=== PATIENT | female | born 1940 | race Caucasian/White ===

== ENCOUNTER 2017-01-12 09:16 | Day surgery (SDC) | payer MEDICARE, BC ==
[~2017-01-12 09:16] MED LIST: Buffered Lidocaine 1% SYRIN* 3 ML/SYR SYRINGE INTRADERM ONE; Famotidine IV* 10 MG/ML 2 ML (20 mg) IV ONE
[2017-01-12] MEDS ORDERED: Famotidine IV* 10 MG/ML 2 ML (20 mg) ONE (09:41)
[2017-01-12] MEDS ORDERED: Clindamycin 900 MG IVPREMIX(* 900 MG/50 ML SDV IV ONE (09:41)
[2017-01-12] MEDS ORDERED: Propofol* 10 MG/ML 20 ML BTL IV PUSH ONE (10:44)
[2017-01-12] MEDS ORDERED: fentaNYL* 50 MCG/ML 2 ML VIAL (100 MCG VIAL) ONE ×3 (10:44→11:26)
[2017-01-12] MEDS ORDERED: Lidocaine 2% PF * 5 ML VIAL ONE (10:44)
[2017-01-12] MEDS ORDERED: KETAMINE HCL* 50 MG/ML 10 ML VIAL ONE (10:55)
[2017-01-12] MEDS ORDERED: Phenylephrine IV* 40 MCG/ML 10 ML SYRINGE ONE (10:56)
[2017-01-12] MEDS ORDERED: Bupivacaine 0.25% SDV* 30 ML ONE (10:57)
[2017-01-12] MEDS ORDERED: EPHEDrine (Pressors)* 50 MG/ML VIAL ONE (11:10)
[2017-01-12] MEDS ORDERED: PROCHLORPERAZINE INJ 5 MG/ML 2 ML VIAL IV PRN (11:25)
[2017-01-12] MEDS ORDERED: oxyCODONE/Acetamin 5/325 MG* TAB PO PRN (11:25)
[2017-01-12] MEDS ORDERED: fentaNYL* 50 MCG/ML 2 ML VIAL (100 MCG VIAL) IV PRN (11:25)
[2017-01-12] MEDS ORDERED: Metoprolol Tartrate IV* 1 MG/ML 5 ML VIAL ONE (11:57)
[2017-01-12] MEDS ORDERED: Ondansetron INJ* 2 MG/ML VIAL ONE (11:58)
[2017-01-12] MEDS ORDERED: HYDROcodone/ACETAMIN 5-325 MG* 1 TAB ONE (13:14)
[2017-01-12 13:47] VITALS: BP 115/68
--- NOTE | 2017-01-13 03:52 | OP ---
DATE OF OPERATION: 01/12/17 [facility] DATE OF : 44 SURGEON: Alli Rodriguez MD CLIENT ACCOUNT MANAGER: FIDEL Duffy ANESTHESIOLOGIST: Dr. Bennett. ANESTHESIA: General. PRE-OPERATIVE DIAGNOSES: 1. Right carpal tunnel syndrome. 2. Right stage 3 basal joint arthritis. POST-OPERATIVE DIAGNOSES: 1. Right carpal tunnel syndrome. 2. Right stage 3 basal joint arthritis. OPERATIVE PROCEDURE: 1. Right open carpal tunnel release. 2. Right thumb carpometacarpal arthroplasty with trapeziectomy. 3. Distally based split flexor carpi radialis tendon transfer for thumb suspension and tendon interposition. INDICATIONS: The patient is a 76-year-old female with progressive carpal tunnel syndrome symptoms and thumb base pain. She had seen my partner, Dr. Mclean, as long as 2 to 3 years ago and had gotten injections and she has had extensive nonoperative treatment. She has been tolerating it, but recently these symptoms have gotten worse and so she came into the office. We talked about treatment options including continued bracing, another steroid injection, with physical therapy. She wanted to proceed with surgery. I discussed the surgery with her as well as the risks and benefits and she again elected to proceed. ESTIMATED BLOOD LOSS: 5 mL. COMPLICATIONS: None. FINDINGS: As expected. I did not find extensive enough degenerative joint disease in the scaphotrapezoid joint to merit partial trapeziectomy. DESCRIPTION OF PROCEDURE: The patient was seen in the preoperative holding area. The correct side, site, and procedure were identified. She came back to the operating room where anesthesia was induced and the arm was prepped and draped in the usual fashion. A formal time-out was performed. The arm was exsanguinated with the esmarch and the tourniquet inflated to 250 mmHg. I began by making a 2 cm to 3 cm longitudinal incision in the standard location for an open carpal tunnel release. Dissection was carried down through the skin, subcutaneous tissue and palmar fascia to expose the transverse carpal ligament. The hook of the hamate was palpated and the transverse carpal ligament was released just off the radial aspect of the hook of the hamate. I did the release from distal to proximal. When I got to the level of the volar wrist flexion crease, I released the subcutaneous tissue and retracted this ulnarly and volarly with the Monica retractor. I then used the tenotomy scissors to complete the release of the transverse carpal ligament and as well as the distal antebrachial fascia to a level of several centimeters proximal center to the volar wrist flexion crease and just ulnar to the palmaris longus tendon. I then checked the decompression and was satisfied with the release. We, therefore, irrigated this wound and closed the skin with some 4-0 nylon horizontal mattress sutures. I then turned my attention to the base of the thumb where a longitudinal incision was made from the base of the thumb down towards the radial styloid just dorsal to the first dorsal compartment tendons. Dissection was carried down bluntly and longitudinally, taking care to preserve the dorsal sensory radial nerve branches. I then identified the radial artery and dissected this out free. There was one perforating branch that was holding it up and so I tied this off with 4-0 silk suture ties. This was then released and the radial artery was retracted proximally. I then longitudinally opened the capsule and raised the capsular and subperiosteal flaps volarly and dorsally. The soft tissue was released off the trapezium to the extent possible. I then used the rongeur to excise the trapezium. The FCR tendon was identified in the base of the wound and it was preserved. Once the trapezium was fully excised, I went ahead and released the dorsal radial soft tissue off the base of the thumb metacarpal. I used sequentially larger drill bits to create a drill hole from dorsal radial to proximal volar and next weaned out the proximal volar in the corner of the articular surface at the metacarpal base. Once the drill hole was made, I irrigated out the wound and turned my attention to the forearm. I began by making a transverse 1 cm incision directly over the FCR tendon just proximal to the volar wrist flexion crease. I opened up the FCR tendon sheath and raised the FCR tendon into the wound. This was split longitudinally with the 15 blade and the 26-gauge wire was passed through this split. I then made a second transverse incision several centimeters proximal to the first incision and again identified the FCR tendon sheath deep in the wound and we opened this up. The sheath and then the tendon adhesions were released with the tenotomy scissors along the course of the tendon. I then made a third transverse incision several centimeters proximal to the second transverse incision and in similar fashion the musculotendinous junction of the tendon was identified and the sheath and the adhesions were released. I then used a Esther to deliver my 26-gauge wire sequentially into the proximal forearm wounds to complete the split of the tendon. This was released at the musculotendinous junction proximally. I sew the tail of the tendon together with some 3-0 Ethibond suture to prevent it from splitting and fraying as I passed it subsequently during the surgery. I then used my tenotomy scissors to split the FCR tendon to the extent possible through the distal forearm wound. I then used two 26- gauge wires as shuttles to shuttle my free suture tail into the thumb base wound. I then pulled up on the free tendon tail and completed the split of the tendon with the tenotomy scissors down to the base of the second metacarpal. The 26-gauge wire was then used to pass the tendon tail through the drill hole in the base of the metacarpal. The tendon tail was then brought back around the intact limb of the FCR tendon and then as I pulled upward on the free tail of the FCR tendon to tension the tendon transfer, I secured the tendon transfer with 2 figure of eight 3-0 Ethibond sutures. The first suture grabbed all 3 limbs of the tendon transfer. The second suture sewed the intact limb to the intact limb. Once I had completed the tendon transfer, I went ahead and rolled up the remainder of the FCR tendon tail. This was secured in a ball with a 3-0 Ethibond suture. This was then placed as an interposition graft between the base of the metacarpal bone and the distal pole of the scaphoid. Please note that prior to doing the tendon transfer, I had inspected the scaphotrapezoid joint by pulling longitudinal traction on the second ray and placed in a freer elevator in the scaphotrapezoid joint. The articular cartilage looked adequate and so I elected not to perform a partial trapeziectomy. Once I had the tendon interposition in place, I irrigated out the wound. The capsular flaps were then closed with 3-0 Ethibond suture until a watertight seal was obtained. I then injected the area of the trapeziectomy with 0.25% Marcaine and all of the wounds with 0.25% Marcaine. All wounds were then closed with 4-0 nylon and horizontal mattress sutures. The wounds were then dressed with Xeroform, 4x4s, sterile Webril and a thumb spica splint was applied. Tourniquet was deflated and the hand pinked up immediately. The patient was then woken up and taken to the recovery room in stable condition. [id number]/CPS #: [id number] MTDD
== END 2017-01-12 13:55 | disposition home or self-care (01) ==
LOC: OREAST 09:16
PROVIDERS: ATTEND Orthopaedic Surgery Hand Surgery
DX: M18.11 Unilateral primary osteoarthritis of first carpometacarpal joint, right hand (principal); G56.01 Carpal tunnel syndrome, right upper limb; E11.9 Type 2 diabetes mellitus without complications; Z79.84 Long term (current) use of oral hypoglycemic drugs; J45.909 Unspecified asthma, uncomplicated; Z85.41 Personal history of malignant neoplasm of cervix uteri; Z87.891 Personal history of nicotine dependence; I10 Essential (primary) hypertension
CPT/HCPCS: 88304; 88311; A9270-GY; J2405; J2704; J3010

== ENCOUNTER 2018-01-02 11:12 | Emergency (ER) | payer MEDICARE, BC ==
--- NOTE | 2018-01-02 11:27 | UC ---
Respiratory Complaint HPI - HPI Summary HPI Summary: 77 y/o female presents to the urgent care c/o productive cough w/ yellowish phlegm for the past week. Pt reports symptoms started as a common cold and then cough worsen. Now unable to sleep at night time w/ mild wheezing. Pt has taking OTC meds and her inhaler.to alleviate cough. Pt denies fever, SOB, chest pain, abdominal pain, N/V/D. - History of Current Complaint Stated Complaint: COUGH Time Seen by Provider: 01/02/18 11:26 Hx Obtained From: Patient ?: No - menopausal Onset/Duration: Gradual Onset, Lasting Weeks - 1 week, Worse Since - yesterday Timing: Intermittent Episodes Severity Initially: Mild Severity Currently: Moderate Pain Intensity: 0 Character: Cough: Productive, Sputum Description: - yellowish Aggravating Factors: Recumbent Position Alleviating Factors: Bronchodilator, OTC Meds Associated Signs And Symptoms: Positive: Wheezing, Nasal Congestion - Risk Factors Pulmonary Embolism Risk Factors: Negative Cardiac Risk Factors: Negative Pseudomonas Risk Factors: Negative Tuberculosis Risk Factors: Negative - Allergies/Home Medications Allergies/Adverse Reactions: Allergies Allergy/AdvReac Type Severity Reaction Status Date / Time Adhesive Tape Allergy Unknown Verified 01/02/18 11:34 Reaction Details azithromycin Allergy Vomiting Verified 01/02/18 11:39 mold Allergy Difficulty Verified 01/02/18 11:39 Breathing Penicillins Allergy Hives Verified 01/02/18 11:39 Sulfa (Sulfonamide Allergy Hives Verified 01/02/18 11:39 Antibiotics) seasonal Allergy Congestion Uncoded 01/02/18 11:34 shrimp Allergy Hives Uncoded 01/02/18 11:34 steroid cream Allergy Unknown Uncoded 01/02/18 11:34 Reaction Details PMH/Surg Hx/FS Hx/Imm Hx Previously Healthy: Yes Endocrine History: Diabetes, Dyslipidemia Cardiovascular History: Hypertension Respiratory History: Asthma - Surgical History Surgical History: Yes Surgery Procedure, Year, and Place: appendectomy 1949's. cholecystectomy 1959' s. hysterectomy 1969's. foot surgery bi-lat early . plate/neck late - Family History Known Family History: Positive: Cardiac Disease, Hypertension, Diabetes - Social History Occupation: Retired Lives: With Family Alcohol Use: Occasionally Alcohol Amount: 2-3 drinks 3-4 x year Substance Use Type: None Smoking Status (MU): Former Smoker Amount Used/How Often: smoked approx 12 yrs , 1ppd When Did the Patient Quit Smoking/Using Tobacco: quit late Review of Systems Constitutional: Negative Skin: Negative Eyes: Negative ENT: Nasal Discharge, Sinus Congestion Respiratory: Cough - productive, Other - wheezing Cardiovascular: Negative Gastrointestinal: Negative Genitourinary: Negative Motor: Negative Neurovascular: Negative Musculoskeletal: Negative Neurological: Negative Psychological: Negative Is Patient Immunocompromised?: No All Other Systems Reviewed And Are Negative: Yes Physical Exam - Summary Physical Exam Summary: Vital Signs Reviewed: Yes General: well developed, well nourished female sitting in the examining table w/ o any apparent distress Eyes: Positive: Conjunctiva Clear - PERRLA, EOMI, fundi grossly normal ENT: Positive: Normal ENT inspection, Hearing grossly normal, Pharynx normal, Nasal congestion - edematous and erythematous nasal mucosa, Nasal drainage - yellowish drainage, TMs normal. Negative: Tonsillar swelling, Tonsillar exudate Neck: Positive: Supple, Nontender, No Lymphadenopathy Respiratory: no orthopnea or dyspnea. Able to speak in full sentences, no retractions or accessory muscle use, no tripod position, stridor, or head bobbing. Positive breath sounds bilaterally, B/L posterior upper lungs w/ mild wheezing and rhonchi, no crackles or rale. Cardiovascular: Positive: RRR, No Murmur, Pulses Normal, Brisk Capillary Refill Abdomen Description: Positive: Nontender, No Organomegaly, Soft. Negative: CVA Tenderness (R), CVA Tenderness (L) Bowel Sounds: Positive: Present Musculoskeletal Exam: Normal Musculoskeletal: Positive: Strength Intact, ROM Intact, No Edema Neurological Exam: Normal Psychological Exam: Normal Skin Exam: Normal Triage Information Reviewed: Yes Respiratory Course/Dx - Course Course Of Treatment: 77 y/o female presents to the urgent care c/o productive cough w/ yellowish phlegm for the past week. Pt reports symptoms started as a common cold and then cough worsen. Now unable to sleep at night time w/ mild wheezing. Pt has taking OTC meds and her inhaler.to alleviate cough. Pt denies fever, SOB, chest pain, abdominal pain, N/V/D. Hx obtained. Pt w/ B/L lungs scattered wheezing and rhonchi on examination. O2Sat:97%. Pt w/ PMHX of asthma and heavy smoker in the past. Pt probably w/ a COPD exacerbation. Chest X-ray ordered: impression: findings of COPD, no acute disease observed. Pt given at the clinic Prednisone 60 mg PO and Duoneb treatment. Pt tolerated well medications and her lungs improved. Pt states feeling better. Pt will be tx w/ Rx Doxycycline PO , Prednisone taper dose and Inhaler. Strongly advised to f/u with her PCP for further management. She also has elevated BP today, advised to decrease salt in her diet and monitor BP, if it continues to be elevated to f /u with her PCP. Pt understood and agreed with D/C instructions and left the clinic hemodynamically stable. - Differential Dx/Diagnosis Differential Diagnosis/HQI/PQRI: Asthma, Bronchitis, Exacerbation Of COPD, Influenza, Lower Resp Infection, Sinusitis Provider Diagnoses: 1- Acute COPD exacerbation. 2-Cough and wheezing. 3- Uncontrolled HTN Discharge - Sign-Out/Discharge Documenting (check all that apply): Discharge/Admit/Transfer - D/C home - Discharge Plan Condition: Stable Disposition: HOME Prescriptions: Benzonatate CAP* [Tessalon 100 MG CAP*] 100 mg PO TID #21 cap DOXYcycline CAP(*) [DOXYcycline 100MG CAP(*)] 100 mg PO BID #20 cap Patient Education Materials: COPD (Chronic Obstructive Pulmonary Disease) (ED) , Low-Sodium Diet (ED) Referrals: Sharonda Mccall [Nurse Practitioner] - Additional Instructions: 1-Please take full course of antibiotic to avoid resistance. 2-Take Tessalon PO tabs as directed and continue using your albuterol inhaler to alleviate cough and wheezing. Increase fluid intake, rest and eat well. 3- If symptoms do not improve or worsen or your develop SOB with fever and severe wheezing please go immediately to the ER further evaluation and treatment. 4- F/u with your appt PCP in 2-3 days w/ your [employer] appt for further management. 5-Your BP is elevated today. please decrease salt in your diet, monitor BP and if it continues to be elevated please f/u with your PCP for further management - Billing Disposition and Condition Condition: STABLE Disposition: HOME
[2018-01-02 11:37] VITALS: BP 141/77
[2018-01-02] MEDS ORDERED: Albuterol/Ipratropium NEB.SOL* Albuterol 2.5 MG/Ipratropium 0.5 MG 3 ML INH ONE (11:51)
--- NOTE | 2018-01-02 12:10 | RAD ---
INDICATION: Productive cough. COMPARISON: There are no prior studies available for comparison. TECHNIQUE: Dual-energy PA and lateral views of the chest were obtained. FINDINGS: The heart is within normal limits in size. Mediastinal and hilar contours appear within normal limits. The lungs are hyperinflated and clear. No pleural effusion is seen. Post surgical changes are noted in the lower cervical spine. IMPRESSION: FINDINGS CONSISTENT WITH COPD, NO EVIDENCE FOR ACUTE FINDING.
== END 2018-01-02 12:39 | disposition home or self-care (01) ==
LOC: UCCORT 11:12
DX: R05 Cough (principal); Z87.891 Personal history of nicotine dependence; Z88.3 Allergy status to other anti-infective agents; Z88.0 Allergy status to penicillin; Z88.2 Allergy status to sulfonamides
CPT/HCPCS: 71046; 99212; A9270-GY; G0463

== ENCOUNTER 2019-03-19 10:16 | Emergency (ER) | payer MEDICARE, BC ==
--- NOTE | 2019-03-19 10:23 | UC ---
Laceration HPI - HPI Summary HPI Summary: 78 yo female presents with LEFT elbow injury. She tells me that this morning she was at the gas station and slipped on an area of spilled gasoline on the ground. Landed on her left elbow. Did not hit her head or have LOC. She was able to get to her feet. Bandaged the area and came directly to . Unsure date of last tetanus. No pain in the elbow. No numbness or tingling. - History Of Current Complaint Stated Complaint: S/P FALL-LEFT ELBOW LACERATION Time Seen by Provider: 03/19/19 10:22 Laceration Location: Elbow Mechanism Of Injury: Blunt Trauma Onset/Duration: Sudden Onset - Allergies/Home Medications Allergies/Adverse Reactions: Allergies Allergy/AdvReac Type Severity Reaction Status Date / Time Adhesive Tape Allergy Unknown Verified 03/19/19 10:35 Reaction Details azithromycin Allergy Vomiting Verified 03/19/19 10:35 mold Allergy Difficulty Verified 03/19/19 10:35 Breathing Penicillins Allergy Hives Verified 03/19/19 10:35 Sulfa (Sulfonamide Allergy Hives Verified 03/19/19 10:35 Antibiotics) seasonal Allergy Congestion Uncoded 03/19/19 10:35 shrimp Allergy Hives Uncoded 03/19/19 10:35 steroid cream Allergy Unknown Uncoded 03/19/19 10:35 Reaction Details Home Medications: Home Medications Losartan TAB* [Cozaar TAB*] 1 tab PO DAILY 03/19/19 [History Confirmed 03/19/19] PMH/Surg Hx/FS Hx/Imm Hx Endocrine History: Diabetes, Dyslipidemia Cardiovascular History: Hypertension - Surgical History Surgical History: Yes Surgery Procedure, Year, and Place: appendectomy s. cholecystectomy s. hysterectomy . foot surgery bi-lat early . plate/neck late - Family History Known Family History: Positive: Cardiac Disease, Hypertension, Diabetes - Social History Lives: With Family Alcohol Use: Occasionally Alcohol Amount: 2-3 drinks 3-4 x year Substance Use Type: None Smoking Status (MU): Former Smoker Amount Used/How Often: smoked approx 12 yrs , 1ppd When Did the Patient Quit Smoking/Using Tobacco: quit late Review of Systems All Other Systems Reviewed And Are Negative: Yes Constitutional: Positive: Negative Skin: Positive: Other - left elbow laceration Respiratory: Positive: Negative Cardiovascular: Positive: Negative Neurovascular: Positive: Negative Musculoskeletal: Positive: Negative Neurological: Positive: Negative Psychological: Positive: Negative Physical Exam - Summary Physical Exam Summary: GENERAL: NAD. WDWN. No pain distress. SKIN: LEFT ELBOW: Overlying olecranon there is an 1.0cm linear laceration just through the dermis that widens with elbow flexion. Wound is clean appearing and without FB. Scant active bleeding. CHEST: No accessory muscle use. Breathing comfortably and in no distress. CV: Pulses intact. Cap refill <2seconds MSK: LEFT elbow: FROM without pain including supination and pronation. NTTP NEURO: Alert. PSYCH: Age appropriate behavior. Triage Information Reviewed: Yes Vital Signs: Vital Signs: Temp Pulse Resp BP Pulse Ox 98.5 F 85 16 145/69 96 03/19/19 10:29 03/19/19 10:29 03/19/19 10:29 03/19/19 10:29 03/19/19 10:29 Vital Signs Reviewed: Yes Laceration Repair - Laceration Repair 1 Description: Linear Laceration Size After Repair: Length (cm) - 1.0 Anesthesia Used: 1.0% Lido Irrigation With Pressure Irrigation Device: Yes Closure Material: Sutures - #3 Closure Method: Single Layer Suture Of: Skin Suture Type: Prolene - 4-0 Laceration Course/Dx - Course/Dx Course Of Treatment: The procedure was explained to the pt and all questions were answered. A time out was performed, witnessed, and signed. The area was irrigated with 200mL sterile saline. 1mL of 2% lidocaine without epi was administered and good anesthetization was achieved. In the usual sterile fashion, THREE 4-0 prolene interrupted sutures were placed. The wound was bandaged with telfa. Pt tolerated procedure well. tdap updated today. Given her diabetes, will place her on keflex for prophylactic infection. - Diagnosis Provider Diagnosis: Laceration of left elbow Discharge - Sign-Out/Discharge Documenting (check all that apply): Patient Departure All imaging exams completed and their final reports reviewed: Yes - Discharge Plan Condition: Stable Disposition: HOME Prescriptions: Cephalexin CAP* [Keflex CAP*] 500 mg PO BID #10 cap Patient Education Materials: Care For Your Stitches (DC), Laceration (ED) Referrals: No Primary Care Phys,NOPCP [Medical Doctor] - Additional Instructions: If you develop a fever, shortness of breath, chest pain, new or worsening symptoms - please call your PCP or go to the ED immediately. Your blood pressure was high at todays visit. Please see your primary provider within 4 weeks for recheck and re-evaluation. 1) Please keep the area bandaged, clean, dry, and intact for the next 24- 48hours and then keep covered daily with a bandaged until sutures are removed. 2) If you develop a fever, colored or thick discharge, increased pain or swelling - please call your PCP or return for a wound check. 3) Please return in 10-14 days to have your THREE sutures removed. - Billing Disposition and Condition Condition: STABLE Disposition: Home
[2019-03-19 10:35] VITALS: BP 145/69
[2019-03-19] MEDS ORDERED: Tetan/Diph/Pertus SYR(Tdap)* 0.5 ML SYR(BOOSTRIX) use SYR contains LATEX IM ONE (10:36)
[2019-03-19] MEDS ORDERED: Lidocaine 2% PF * 5 ML VIAL INJ ONE (10:41)
== END 2019-03-19 11:25 | disposition home or self-care (01) ==
LOC: UCCORT 10:16
DX: S51.012A Laceration without foreign body of left elbow, initial encounter (principal); W01.0XXA Fall on same level from slipping, tripping and stumbling without subsequent striking against object, initial encounter; Y92.524 Gas station as the place of occurrence of the external cause; Z23 Encounter for immunization; I10 Essential (primary) hypertension; Z88.1 Allergy status to other antibiotic agents; Z88.0 Allergy status to penicillin; Z91.013 Allergy to seafood; Z88.2 Allergy status to sulfonamides; Z88.8 Allergy status to other drugs, medicaments and biological substances; Z91.048 Other nonmedicinal substance allergy status; Z87.891 Personal history of nicotine dependence
CPT/HCPCS: 12001; 90715; 99212; G0463

== ENCOUNTER 2019-03-21 09:39 | Emergency (ER) | payer MEDICARE, BC ==
[2019-03-21 10:11] VITALS: BP 144/77
--- NOTE | 2019-03-21 11:10 | UC ---
HPI Wound/Suture Re-check - HPI Summary HPI Summary: Pt presents with c/o of gradual onset of increased redness, tenderness and mild swelling at laceration site on left posterior elbow. Pt slipped and fell at gas station two days ago and hit left elbow on pavement. - History Of Current Complaint Chief Complaint: UCLaceration Stated Complaint: RECHECK-STITCHES IN ELBOW RED Time Seen by Provider: 03/21/19 10:22 Hx Obtained From: Patient Onset/Duration: Gradual Onset, Lasting Days, Still Present, Worse Since - initial onset Severity: Mild Pain Intensity: 0 - Allergies/Home Medications Allergies/Adverse Reactions: Allergies Allergy/AdvReac Type Severity Reaction Status Date / Time Adhesive Tape Allergy Unknown Verified 03/21/19 10:07 Reaction Details azithromycin Allergy Vomiting Verified 03/21/19 10:07 mold Allergy Difficulty Verified 03/21/19 10:07 Breathing Penicillins Allergy Hives Verified 03/21/19 10:07 Sulfa (Sulfonamide Allergy Hives Verified 03/21/19 10:07 Antibiotics) seasonal Allergy Congestion Uncoded 03/21/19 10:07 shrimp Allergy Hives Uncoded 03/21/19 10:07 steroid cream Allergy Unknown Uncoded 03/21/19 10:07 Reaction Details Home Medications: Home Medications Atorvastatin* [Lipitor 10 MG*] 10 mg PO DAILY 03/21/19 [History Confirmed ] Mometasone 220 MCG MDI * [Asmanex 220 MCG MDI *] 1 puff INH QAM 03/21/19 [ History Confirmed 03/21/19] PMH/Surg Hx/FS Hx/Imm Hx Previously Healthy: Yes Cardiovascular History: Cardiac Disease, Hypertension - Surgical History Surgical History: Yes Surgery Procedure, Year, and Place: appendectomy s. cholecystectomy s. hysterectomy s. foot surgery bi-lat early . plate/neck late - Family History Known Family History: Positive: Cardiac Disease, Hypertension, Diabetes - Social History Occupation: Retired Lives: With Family Alcohol Use: Rare Alcohol Amount: 2-3 drinks 3-4 x year Substance Use Type: None Smoking Status (MU): Former Smoker Amount Used/How Often: smoked approx 12 yrs , 1ppd Have You Smoked in the Last Year: No When Did the Patient Quit Smoking/Using Tobacco: quit late - Immunization History Most Recent Tetanus Shot: 03/19/19 Vaccination Up to Date: Yes Review of Systems All Other Systems Reviewed And Are Negative: Yes Constitutional: Positive: Negative Skin: Positive: Other - erythema, swelling, tenderness Eyes: Positive: Negative ENT: Positive: Negative Respiratory: Positive: Negative Cardiovascular: Positive: Negative Gastrointestinal: Positive: Negative Genitourinary: Positive: Negative Motor: Positive: Other - pain with ROM left elbow Musculoskeletal: Positive: Edema - left posterior elbow mild swelling, Myalgia - left elbow Neurological: Positive: Negative Psychological: Positive: Negative Is Patient Immunocompromised?: No Physical Exam Triage Information Reviewed: Yes Appearance: Pain Distress - with palpation of wound site Vital Signs: Initial Vital Signs Temp 98.6 F 03/21/19 10:06 Pulse 85 03/21/19 10:06 Resp 15 03/21/19 10:06 BP 144/77 03/21/19 10:06 Pulse Ox 97 03/21/19 10:06 Vital Signs Reviewed: Yes Eye Exam: Normal ENT: Positive: Hearing grossly normal Dental Exam: Normal Neck exam: Normal Respiratory: Positive: No respiratory distress Musculoskeletal: Positive: ROM Limited @ - c/o pain with ROM, Edema @ - left elbow ~ 10 cm in diameter Neurological Exam: Normal Psychological Exam: Normal Skin Exam: Other - mild erythema ~ 10 cm diameter left posterior elbow, mild swelling, Diagnostics - Radiology No standard instances Radiology Interpretation Completed By: Radiologist - IMPRESSION: There is suggestion of a joint effusion present. Course/Dx - Course Course Of Treatment: Three sutures were removed, pt was instructed to continue to take keflex and take doxycycline. steri strips applied along with non stick dressing. wound was irrigated with 1200 cc of normal saline. pt stated that arm felt better after sutures removed and wound irrigated. non drainage from wound site. Xray: IMPRESSION: There is suggestion of a joint effusion present.. Pt was instructed to follow up with Dr. Rodriguez. frankie. Pt was also told to follow up with wound care if needed. - Differential Dx - Laceration/Wound Differential Diagnoses: Cellulitis, Suture Removal - Diagnosis Provider Diagnosis: Infected wound, Encounter for removal of sutures, Effusion of elbow joint, left Discharge - Sign-Out/Discharge Documenting (check all that apply): Patient Departure All imaging exams completed and their final reports reviewed: Yes - Discharge Plan Condition: Stable Disposition: HOME Prescriptions: DOXYcycline CAP(*) [DOXYcycline 100MG CAP(*)] 100 mg PO Q12H #14 cap Patient Education Materials: Wound Infection (ED), Swollen Joint (ED) Referrals: Josy Arriaga NP [Primary Care Provider] - If Needed Alli Rodriguez MD [Medical Doctor] - As Soon As Possible Additional Instructions: Please finish the the Cephalexin prescribed for you and begin the Doxycycline immediately. Please follow up with Dr. Rodriguez as soon as possible. If your symptoms worsen or do not improve, please go directly to the closest emergency room. - Billing Disposition and Condition Condition: STABLE Disposition: Home
== END 2019-03-21 11:32 | disposition home or self-care (01) ==
LOC: UCCORT 09:39
DX: S51.012D Laceration without foreign body of left elbow, subsequent encounter (principal); L08.9 Local infection of the skin and subcutaneous tissue, unspecified; W01.0XXD Fall on same level from slipping, tripping and stumbling without subsequent striking against object, subsequent encounter; Z48.02 Encounter for removal of sutures; M25.422 Effusion, left elbow; Z88.0 Allergy status to penicillin; Z88.1 Allergy status to other antibiotic agents; I11.9 Hypertensive heart disease without heart failure; Z87.891 Personal history of nicotine dependence
CPT/HCPCS: 99213; G0463